=== PATIENT | male | born 1955 | race Caucasian/White ===

== ENCOUNTER → 2022-04-16 | Outpatient (CLI) | payer MEDICARE ==
--- NOTE | 2022-04-16 10:16 | MM ---
Reason for Exam: Clinical finding. Indicated Problems: Pain of both sides (Focal) for 3 Month(s) : NIPPLES AND UNDER BILATERALLY. Tissue Density: There are scattered fibroglandular densities. Findings: Analyzed By CAD. Bilateral flame-shaped reticular gynecomastia identified. No suspicious mass or worrisome calcifications within the breasts. There appears to be enlarged bilateral lymph nodes within the chest. Overall Assessment: Benign, BI-RAD 2 Management: Clinical Management in 1 year. There appears to be bilateral enlarged lymph nodes within the chest. Further evaluation with CT chest is recommended. A clinical breast exam by your physician is recommended on an annual basis and results should be correlated with mammographic findings. This exam should not preclude additional follow-up of suspicious palpable abnormalities. Results were given to the patient verbally at the time of exam. Electronically signed and approved by: Andrew Floyd D.O.
== END | disposition home or self-care (01) ==
LOC: RADMAMWWP 09:32
PROVIDERS: ATTEND Family Medicine
DX: N64.4 Mastodynia (principal); R92.8 Other abnormal and inconclusive findings on diagnostic imaging of breast
CPT/HCPCS: 77066; G0279; 77062